=== PATIENT | female | born 1995 | race Caucasian/White ===

== ENCOUNTER 2017-07-26 10:24 | Emergency (ER) | payer OTHER ==
[~2017-07-26] VITALS: Ht 180.3 cm; Wt 54.4 kg
[~2017-07-26 10:24] MED LIST: CALC500C70 PO; MEDR150I IM
[2017-07-26 10:39] VITALS: TEMP 37; Ht 180.3 cm; Wt 54.4 kg
[2017-07-26] MEDS ORDERED: ONDANSETRON INJ 2 MG/ML 2 ML VIAL IV STA (11:08)
[2017-07-26 11:25] LABS: BASO % 0.1 %; BASO ABS # 0.01 K/uL (0-0.2); EOS % 0.3 %; EOS ABS # 0.03 K/uL (0-0.5); IG# 0.02 K/uL (0.00-0.02); LYMPH % 14.2 %; LYMPH ABS # 1.33 K/uL (1.2-3.4); MEAN CELL VOLUME 87.5 fL (80-100); MEAN CORPUSCULAR HEMOGLOBIN 31.3 pg (25-34); MEAN CORPUSCULAR HGB CONC 35.7 g/dl (32-36); MEAN PLATELET VOLUME 9.3 fL (7.4-10.4); MONO % 5.7 %; MONO ABS # 0.53 K/uL (0.11-0.59); NEUT % 79.5 %; NEUT ABS # 7.43 K/uL (1.4-6.5); PLATELET COUNT 212 K/uL (130-400); RED CELL DISTRIBUTION WIDTH CV 11.9 % (11.5-14.5); RED CELL DISTRIBUTION WIDTH SD 38.4 fL (36.4-46.3); WHITE BLOOD COUNT 9.35 K/uL (4.8-10.8)
[2017-07-26 11:42] LABS: ALBUMIN 4.4 gm/dl (3.4-5.0); CALCIUM 9.6 mg/dl (8.5-10.1); CREATININE 0.91 mg/dl (0.60-1.20)
[2017-07-26 11:45] LABS: TOTAL PROTEIN 8.7 gm/dl (6.4-8.2)
[2017-07-26] MEDS ORDERED: BCPILLS PO (12:02)
[2017-07-26] MEDS ORDERED: PROMETHAZINE HCL INJ 25 MG in SODIUM CHLORIDE 0.9% 50ML 50 ML IV STA (13:39)
[2017-07-26] MEDS ORDERED: SODIUM CHLORIDE 0.9% 1000ML 1,000 ML IV STA (13:39)
[2017-07-26] MEDS ORDERED: SULF800T23 PO (15:53)
[2017-07-26] MEDS ORDERED: ONDA4TAB65 PO (15:53)
[2017-07-26 16:20] VITALS: BP 92/52; PULSE 58; O2SAT 99
--- NOTE | 2017-07-26 17:04 | EMERGENCY ROOM VISIT NOTE ---
History First contact with patient: 10:50 Chief Complaint: ILLNESS Stated Complaint: NAUSEA,HEADACHE,BACK PAIN,MUSCLE PAIN History of Present Illness The patient is a 22 year old white female who presents to the Emergency Room with complaints of nausea, vomiting, dizziness, and generalized muscle pain that has been present since Thursday. She did attend a graduation ceremony on Thursday. Symptoms began shortly after. She reportedly has not been able to retain any food or fluid over the last 2 days. She denies any fevers, chills, sweats, diarrhea, or abdominal pain. No cough or respiratory symptoms. No back pain or neck pain. No significant headache. She denies any urinary symptoms. She states she had a similar episode of nausea and vomiting when she was a freshman here. She was hospitalized for 5 days at that time. She does not believe there was any final diagnosis as to the cause. Her mother accompanies her today. Review of Systems REVIEW OF SYSTEM: HEENT: No visual problems, hearing loss, or tinnitus. There is no difficulty swallowing and no oral lesions are present. LYMPH: No adenopathy. PULMONARY: No cough, shortness of breath, sputum production or hemoptysis. CARDIOVASCULAR: No chest pain, palpitations, shortness of breath or peripheral edema. GASTROINTESTINAL: No diarrhea, constipation, or abdominal pain. GENITOURINARY: No dysuria, frequency, urgency or nocturia. NEUROLOGIC: No weakness, muscle tenderness, epilepsy or history of neurological problems. No history of chronic headaches. MUSCULOSKELETAL: No history of joint tenderness/swelling. No history of arthritis or arthralgias. SKIN: No rashes or lesions. PSYCHIATRIC: No history of depression or mental illness. ENDOCRINE: No history of diabetes, thyroid disorders, or abnormal hair growth. Past Medical/Surgical History Medical Problems: (1) No Known Active Medical Problems Family History Noncontributory. Parents are living. Social History Smoking Status: Never Smoker Smokeless Tobacco Use: No Alcohol Use: occasionally Drug Use: none Marital Status: single Housing Status: lives with significant other Occupation Status: employed, student Current/Historical Medications Scheduled Control Pills ( Control Pills), 1 TAB PO DAILY Calcium/Vitamin D (Os-Tanner 500 Plus D), 2 TAB PO DAILY Sulfa/Trimethoprim (Bactrim Ds 800MG/160MG), 1 TAB PO BID Scheduled PRN Ondansetron Hcl (Zofran), 1 TAB PO Q6H PRN for Nausea or Vomiting Physical Exam Vital Signs Date Time Temp Pulse Resp B/P (MAP) Pulse Ox O2 Delivery O2 Flow Rate FiO2 07/26/17 16:20 58 18 92/52 99 Room Air 07/26/17 15:31 65 12 101/64 95 Room Air 07/26/17 13:53 78 16 97/66 99 07/26/17 12:58 71 18 113/77 99 Room Air 07/26/17 11:19 72 18 103/75 99 Room Air 07/26/17 10:39 37.0 98 18 126/81 95 Room Air Physical Exam General: Well-developed, well-nourished, young white female, in no acute distress. Laying on the bed. Alert and oriented. Skin: Warm and dry with good turgor. No rashes or lesions. No ecchymosis or erythema. The patient is not diaphoretic. No abrasions. HEENT: Normocephalic atraumatic. Eyes PERRLA, EOMI. No conjunctiva or scleral injection. Ears TMs intact bilaterally with good light reflexes. No erythema or bulging. No hemotympanum. Canals are patent. Nares patent bilaterally without turbinate enlargement. No significant drainage. No epistaxis. Oropharynx without erythema or exudate. Uvula midline, oral mucosa moist. No lesions present. Lymphatics are palpated without anterior or posterior chain enlargement or tenderness. Heart: Heart RRR. No MGR. Peripheral pulses are 2+. Lungs: Lungs are clear to auscultation. No crackles rhonchi or wheezing. Good air movement. The patient is able to take a deep breath. Abdomen: Abdomen was inspected, auscultated, and palpated. Bowel sounds present x 4. Infrequent. Soft, nontender to palpation. No hepato- splenomegaly. No masses noted. No rebound, negative Lopez sign. No pain over McBurney's point. No pain with palpation over her bladder or left lower quadrant. No CVA tenderness. Musculoskeletal: Gross motor function of the upper and lower extremities is intact and unremarkable. Neurologic: Gross sensation is intact across the upper and lower extremities by soft touch. Medical Decision & Procedures Laboratory Results 07/26/17 11:15 Red Blood Count 4.80, Mean Corpuscular Volume 87.5, Mean Corpuscular Hemoglobin 31.3, Mean Corpuscular Hemoglobin Concent 35.7, Mean Platelet Volume 9.3, Neutrophils (%) (Auto) 79.5, Lymphocytes (%) (Auto) 14.2, Monocytes (%) (Auto) 5.7, Eosinophils (%) (Auto) 0.3, Basophils (%) (Auto) 0.1, Neutrophils # (Auto) 7.43, Lymphocytes # (Auto) 1.33, Monocytes # (Auto) 0.53, Eosinophils # (Auto) 0.03, Basophils # (Auto) 0.01 07/26/17 11:15 Test 07/26/17 11:11 07/26/17 11:15 Urine Color DK YELLOW Urine Appearance CLOUDY (CLEAR) Urine pH 5.0 (4.5-7.5) Urine Specific [place] 1.026 (1.000-1.030) Urine Protein NEG (NEG) Urine Glucose (UA) NEG (NEG) Urine Ketones NEG (NEG) Urine Occult Blood NEG (NEG) Urine Nitrite POS (NEG) Urine Bilirubin NEG (NEG) Urine Urobilinogen NEG (NEG) Urine Leukocyte Esterase TRACE (NEG) Urine WBC (Auto) 5-10 /hpf (0-5) Urine RBC (Auto) 0-4 /hpf (0-4) Urine Hyaline Casts (Auto) 10-30 /lpf (0-5) Urine Epithelial Cells (Auto) >30 /lpf (0-5) Urine Bacteria (Auto) 4+ (NEG) Urine Test NEG (NEG) White Blood Count 9.35 K/uL (4.8-10.8) Red Blood Count 4.80 M/uL (4.2-5.4) Hemoglobin 15.0 g/dL (12.0-16.0) Hematocrit 42.0 % (37-47) Mean Corpuscular Volume 87.5 fL (80-100) Mean Corpuscular Hemoglobin 31.3 pg (25-34) Mean Corpuscular Hemoglobin Concent 35.7 g/dl (32-36) Platelet Count 212 K/uL (130-400) Mean Platelet Volume 9.3 fL (7.4-10.4) Neutrophils (%) (Auto) 79.5 % Lymphocytes (%) (Auto) 14.2 % Monocytes (%) (Auto) 5.7 % Eosinophils (%) (Auto) 0.3 % Basophils (%) (Auto) 0.1 % Neutrophils # (Auto) 7.43 K/uL (1.4-6.5) Lymphocytes # (Auto) 1.33 K/uL (1.2-3.4) Monocytes # (Auto) 0.53 K/uL (0.11-0.59) Eosinophils # (Auto) 0.03 K/uL (0-0.5) Basophils # (Auto) 0.01 K/uL (0-0.2) RDW Standard Deviation 38.4 fL (36.4-46.3) RDW Coefficient of Variation 11.9 % (11.5-14.5) Immature Granulocyte % (Auto) 0.2 % Immature Granulocyte # (Auto) 0.02 K/uL (0.00-0.02) Anion Gap 6.0 mmol/L (3-11) Est Creatinine Clear Calc Drug Dose 82.6 ml/min Estimated GFR () 103.1 Estimated GFR (Non- 88.9 BUN/Creatinine Ratio 9.8 (10-20) Calcium Level 9.6 mg/dl (8.5-10.1) Total Bilirubin 0.8 mg/dl (0.2-1) Aspartate Amino Transf (AST/SGOT) 16 U/L (15-37) Alanine Aminotransferase (ALT/SGPT) 19 U/L (12-78) Alkaline Phosphatase 66 U/L (45-117) Total Protein 8.7 gm/dl (6.4-8.2) Albumin 4.4 gm/dl (3.4-5.0) Globulin 4.3 gm/dl (2.5-4.0) Albumin/Globulin Ratio 1.0 (0.9-2) CBC, UA, and chemistry panel were obtained. CBC and chemistry panel are unremarkable. UA suggests contaminated sample but probable UTI. Medications Administered Medications (Trade) Dose Ordered Sig/Joaquim Route Start Time Stop Time Status Last Admin Dose Admin Ondansetron HCl (Zofran Inj) 4 mg NOW STAT IV 07/26/17 11:08 07/26/17 11:12 DC 07/26/17 11:17 4 MG Promethazine HCl 25 mg/Sodium Chloride 51 ml @ 204 mls/hr NOW STAT IV 07/26/17 13:39 07/26/17 13:53 DC 07/26/17 13:58 204 MLS/HR Sodium Chloride 1,000 ml @ 999 mls/hr Q1H1M STAT IV 07/26/17 13:39 07/26/17 14:39 DC 07/26/17 13:58 999 MLS/HR Zofran 4 mg IV, Phenergan 25 mg IV, saline 1 L bolus. ED Course Patient was examined in C3. Conservative care measures were discussed. IV was established. Labs were obtained. Urine sample was also obtained. She was given Zofran 4 mg IV with some resolution of her nausea. She did try to drink some elke flakito but states she vomited again. She was then given 1 L normal sterile saline IV bolus and Phenergan 25 mg IV. She was able to drink some Gatorade without vomiting. She was able to sleep for a while in the department. Option of Phenergan orally versus Zofran orally was discussed. She would like to try the Zofran. Prescription was provided. Maintain hydration. [place] diet was recommended. Advance as tolerated. Start Bactrim 1 pill 2 times a day 5 days. Urine will be cultured. She will be called if the results are abnormal. Follow-up with her PCP or return to the ED for any acute changes. Medical Decision Possibility of dehydration, gastroenteritis, electrolyte abnormality, viral illness, UTI, nephritis, appendicitis, cholecystitis, bowel obstruction, , and upper respiratory illness were considered, among others. Medication Reconcilliation Current Medication List: was personally reviewed by ne Blood Pressure Screening Patient's blood pressure: Normal blood pressure Impression Primary Impression: Nausea & vomiting Additional Impression: Urinary tract infection Departure Information Prescriptions Sulfa/Trimethoprim (Bactrim Ds 800MG/160MG) Tab 1 TAB PO BID for 5 Days, #10 TAB Prov: Brigido Chao,P.A. 07/26/17 Ondansetron Hcl (ZOFRAN) 4 Mg Tab 1 TAB PO Q6H Y for Nausea or Vomiting, #10 TAB Prov: Brigido Chao,P.A. 07/26/17 Referrals [facility] (PCP) Patient Instructions [facility] Problem Qualifiers Primary Impression: Nausea & vomiting Vomiting type: unspecified Vomiting Intractability: non-intractable Qualified Codes: R11.2 - Nausea with vomiting, unspecified Additional Impression: Urinary tract infection Urinary tract infection type: acute cystitis Hematuria presence: without hematuria Qualified Codes: N30.00 - Acute cystitis without hematuria
--- NOTE | 2017-07-28 12:11 | Pharmacy Progress Note ---
ED Pharmacist Culture FollowUp Date of Service: July 28, 2017. Patient was sent home with a prescription for Bactrim DS 1 tab BID x 5 days, which should cover the E. coli growing from the patient's urine culture.
== END 2017-07-26 16:34 | disposition home or self-care (01) ==
LOC: C.EDB 10:25 → C.EDC 16:34
DX: N39.0 Urinary tract infection, site not specified (principal); Z79.3 Long term (current) use of hormonal contraceptives; Z79.899 Other long term (current) drug therapy